=== PATIENT | female | born 2000 | race Two or more races ===

== ENCOUNTER 2022-09-25 23:37 | Emergency (ER) | payer BC, MEDICAID ==
[~2022-09-25] VITALS: Ht 170.2 cm; Wt 81.6 kg
[2022-09-26 02:20] VITALS: BP 116/72
[2022-09-26] MEDS ORDERED: MAG HYDROX/AL HYDROX/SIMETH 30 ML UDC PO ONE (02:30)
[2022-09-26] MEDS ORDERED: LIDOCAINE VISCOUS 2% UD 15 ML UDC MM ONE (02:30)
[2022-09-26] MEDS ORDERED: MAG HYDROX/AL HYDROX/SIMETH 30 ML UDC ONE (02:35)
[2022-09-26] MEDS ORDERED: LIDOCAINE VISCOUS 2% UD 15 ML UDC ONE (02:35)
== END 2022-09-26 02:39 | disposition home or self-care (01) ==
LOC: ER 23:44
DX: K21.9 Gastro-esophageal reflux disease without esophagitis (principal)

== ENCOUNTER 2025-03-16 12:50 | Emergency (ER) | payer BC ==
[~2025-03-16] VITALS: Ht 170.2 cm; Wt 67.1 kg
[2025-03-16 13:12] VITALS: TEMP 98
[2025-03-16] MEDS ORDERED: NA PHOS,M-B/NA PHOS,DI-BA 1 EA ENEMA RC ONE (13:19)
[2025-03-16] MEDS ORDERED: MAGNESIUM CITRATE 296 ML BOTTLE ONE (13:19)
[2025-03-16] MEDS: MAGNESIUM CITRATE 296 ML BOTTLE PO ONE (13:23)
[2025-03-16] MEDS ORDERED: LIDOCAINE 2% JEL UROJET 10 ML MM ONE (13:46)
[2025-03-16] MEDS: LIDOCAINE 2% JEL UROJET 10 ML MM ONE (14:08)
[2025-03-16] MEDS: NA PHOS,M-B/NA PHOS,DI-BA 1 EA ENEMA RC ONE (14:16)
[2025-03-16 14:27] VITALS: BP 118/64; O2SAT 99
== END 2025-03-16 14:26 | disposition home or self-care (01) ==
LOC: ER 12:59
DX: K59.00 Constipation, unspecified (principal)
CPT/HCPCS: 99284; J3490